=== PATIENT | female | born 1960 | race Caucasian/White ===

== ENCOUNTER 2017-08-29 15:28 | Emergency (ER) | payer OTHER ==
[~2017-08-29] VITALS: Ht 157.5 cm; Wt 71.2 kg
[2017-08-29 15:42] VITALS: Ht 157.5 cm; Wt 71.2 kg
[2017-08-29 17:35] VITALS: BP 165/95
== END 2017-08-29 17:36 | disposition home or self-care (01) ==
LOC: ED 15:28
DX: S20.212A Contusion of left front wall of thorax, initial encounter (principal); M77.9 Enthesopathy, unspecified; X58.XXXA Exposure to other specified factors, initial encounter; Y93.89 Activity, other specified; Y92.89 Other specified places as the place of occurrence of the external cause; Y99.8 Other external cause status
CPT/HCPCS: J1885